=== PATIENT | female | born 1990 | race Caucasian/White ===

== ENCOUNTER → 2019-01-05 | Outpatient (CLI) | payer OTHER | END | disposition home or self-care (01) | LOC: LAB 10:20 | PROVIDERS: ATTEND Advanced Practice Midwife | DX: Z34.82 Encounter for supervision of other normal pregnancy, second trimester (principal); Z3A.00 Weeks of gestation of pregnancy not specified | CPT/HCPCS: 36415; 82105 ==

== ENCOUNTER → 2019-02-17 | Outpatient (CLI) | payer OTHER ==
[2019-02-17 10:37] LABS: BASOPHILS # (AUTO) 0.02 x10^3/uL (0-0.1); BASOPHILS % (AUTO) 0 % (0-1); EOSINOPHILS # (AUTO) 0.18 x10^3/uL (0-0.4); EOSINOPHILS % (AUTO) 2 % (1-7); LYMPHOCYTES # (AUTO) 1.45 x10^3/uL (1-3.4); LYMPHOCYTES % (AUTO) 13 % (22-44); MD NO; MEAN CORPUSCULAR HEMOGLOBIN 29.8 pg (27.0-34.8); MEAN CORPUSCULAR HGB CONC 32.6 g/dL (32.4-35.8); MEAN CORPUSCULAR VOLUME 91.5 fL (80-100); MEAN PLATELET VOLUME 8.3 fL (7.4-10.4); MONOCYTES # (AUTO) 0.57 x10^3/uL (0.2-0.8); MONOCYTES % (AUTO) 5 % (2-9); NEUTROPHILS # (AUTO) 9.43 x10^3/uL (1.8-6.8); NEUTROPHILS % (AUTO) 81 % (42-75); PLATELET COUNT 196 x10^3/uL (130-400); RED BLOOD COUNT 4.07 x10^6/uL (3.82-5.3); RED CELL DISTRIBUTION WIDTH 13.9 % (9.6-15.2)
== END | disposition home or self-care (01) ==
LOC: LAB 09:46
PROVIDERS: ATTEND Obstetrics & Gynecology Maternal & Fetal Medicine
DX: Z34.82 Encounter for supervision of other normal pregnancy, second trimester (principal)
CPT/HCPCS: 36415; 82950; 85025

== ENCOUNTER 2019-02-26 03:50 | Emergency (ER) | payer OTHER ==
[~2019-02-26] VITALS: Ht 152.4 cm; Wt 95.2 kg
[2019-02-26] MEDS ORDERED: SODIUM CHLORIDE FLUSH 10ML SYR IVF ONE ×2 (04:00→06:30)
--- NOTE | 2019-02-26 04:01 | NUR ---
L&D NURSE CALLED, RN CAME DOWN AND ASSESSED HEART TONES, ADVISED THERE WAS NO NEED FOR ANY FURTHER MONITORING AT THIS TIME
--- NOTE | 2019-02-26 04:21 | NUR ---
PT HERE FOR CHEST PAIN THAT STARTED SEVERAL HOURS AGO. PAIN IS STERNAL AND NON RADIATING. PAIN IS 6/10. VSS. PT ASSESSED BY Jada AND Leon. PT IS 25 WEEKS . LAB AT BEDSIDE. CALL LIGHT IN REACH
[2019-02-26 04:40] LABS: BASOPHILS # (AUTO) 0.02 x10^3/uL (0-0.1); BASOPHILS % (AUTO) 0 % (0-1); EOSINOPHILS # (AUTO) 0.11 x10^3/uL (0-0.4); EOSINOPHILS % (AUTO) 1 % (1-7); LYMPHOCYTES # (AUTO) 0.55 x10^3/uL (1-3.4); LYMPHOCYTES % (AUTO) 6 % (22-44); MD NO; MEAN CORPUSCULAR HEMOGLOBIN 30.1 pg (27.0-34.8); MEAN CORPUSCULAR HGB CONC 33.2 g/dL (32.4-35.8); MEAN CORPUSCULAR VOLUME 90.6 fL (80-100); MEAN PLATELET VOLUME 8.4 fL (7.4-10.4); MONOCYTES # (AUTO) 0.65 x10^3/uL (0.2-0.8); MONOCYTES % (AUTO) 7 % (2-9); NEUTROPHILS # (AUTO) 7.53 x10^3/uL (1.8-6.8); NEUTROPHILS % (AUTO) 85 % (42-75); PLATELET COUNT 175 x10^3/uL (130-400); RED BLOOD COUNT 4.13 x10^6/uL (3.82-5.3); RED CELL DISTRIBUTION WIDTH 13.8 % (9.6-15.2)
[2019-02-26 04:53] LABS: ALANINE AMINOTRANSFERASE 16 U/L (12-78); ALBUMIN 2.8 g/dL (3.4-5.0); ANION GAP 9 mmol/L (5-15); CALCIUM 8.5 mg/dL (8.5-10.1); CHLORIDE 109 mmol/L (98-107); CREATININE 0.45 mg/dL (0.55-1.02)
[2019-02-26 04:57] LABS: ALKALINE PHOSPHATASE 77 U/L (45-117); BILIRUBIN,TOTAL 0.2 mg/dL (0.2-1.0); TOTAL PROTEIN 6.7 g/dL (6.4-8.2); TROPONIN I < 0.015 ng/mL (0.000-0.045)
--- NOTE | 2019-02-26 05:32 | NUR ---
PT RESTING IN NAD. PT TO HAVE LOWER EXTREMITY US AND D DIMER. VSS. CALL LIGHT IN REACH
--- NOTE | 2019-02-26 06:35 | NUR ---
PT TO CT
[2019-02-26] MEDS ORDERED: OMNIPAQUE 350 MG/ML, 100ML BOTTLE ONE (06:50)
--- NOTE | 2019-02-26 06:50 | NUR ---
RECEIVED REPORT FROM SUAD NORMAN, PLAN OF CARE DISCUSSED
--- NOTE | 2019-02-26 07:09 | NUR ---
PT RESTING, DENIES ANY PAIN AT THIS TIME. CUSTOMS VERIFIER ON.
--- NOTE | 2019-02-26 07:35 | NUR ---
Patient/Caregiver given discharge instructions and they have confirmed that they understand the instructions. Patient ambulatory with steady gait.
[2019-02-26 07:36] VITALS: BP 110/69
== END 2019-02-26 07:38 | disposition home or self-care (01) ==
LOC: ED 05:31
DX: O26.892 Other specified pregnancy related conditions, second trimester (principal); R07.89 Other chest pain; Z3A.27 27 weeks gestation of pregnancy
CPT/HCPCS: 36415; 71045; 71275; 80053; 83880; 84484; 85025; 85379; 93005; 93971; 99284; Q9967

== ENCOUNTER 2019-05-12 08:21 | Inpatient (IN) | payer OTHER ==
[2019-05-12] VITALS (9 sets, daily range): BP systolic 108–136; BP diastolic 72–86
[~2019-05-12] VITALS: Ht 152.4 cm; Wt 102.7 kg
[2019-05-12] MEDS ORDERED: LACTATED RINGERS 1,000 ML IV SCH (09:54)
[2019-05-12] MEDS ORDERED: OXYTOCIN 30U/ 0.9% NaCL 500ML 500 ML IV ONE (09:54)
[2019-05-12] MEDS ORDERED: FENTANYL PF 100 MCG/2ML IV PRN (10:00)
[2019-05-12] MEDS ORDERED: ONDANSETRON 2MG/ML, 2ML IVPush PRN (10:00)
[2019-05-12] MEDS ORDERED: FENTANYL PF 100 MCG/2ML IVPush PRN (10:00)
[2019-05-12] MEDS ORDERED: SODIUM CHLORIDE FLUSH 10ML SYR IVF PRN (10:00)
[2019-05-12 10:30] LABS: BASOPHILS # (AUTO) 0.03 x10^3/uL (0-0.1); BASOPHILS % (AUTO) 0 % (0-1); EOSINOPHILS # (AUTO) 0.11 x10^3/uL (0-0.4); EOSINOPHILS % (AUTO) 1 % (1-7); LYMPHOCYTES # (AUTO) 1.36 x10^3/uL (1-3.4); LYMPHOCYTES % (AUTO) 14 % (22-44); MD NO; MEAN CORPUSCULAR HEMOGLOBIN 29.6 pg (27.0-34.8); MEAN CORPUSCULAR HGB CONC 32.9 g/dL (32.4-35.8); MEAN CORPUSCULAR VOLUME 90.1 fL (80-100); MEAN PLATELET VOLUME 8.8 fL (7.4-10.4); MONOCYTES % (AUTO) 6 % (2-9); NEUTROPHILS # (AUTO) 7.64 x10^3/uL (1.8-6.8); NEUTROPHILS % (AUTO) 79 % (42-75); PLATELET COUNT 189 x10^3/uL (130-400); RED CELL DISTRIBUTION WIDTH 14.9 % (9.6-15.2)
[2019-05-12] MEDS: OXYTOCIN 30U/ 0.9% NaCL 500ML 500 ML IV SCH ×2 (13:00→19:01)
[2019-05-12] MEDS ORDERED: NEWBORN KIT ONE (13:08)
[2019-05-12] MEDS ORDERED: LIDOCAINE 1%, 20ML ONE (13:08)
[2019-05-12] MEDS ORDERED: MISOPROSTOL 200 MCG TABLET ONE (13:09)
[2019-05-12] MEDS ORDERED: OXYTOCIN 30U/ 0.9% NaCL 500ML 500 ML ONE (13:09)
[2019-05-12] MEDS ORDERED: HYDROcodone/APAP 5/325 TABLET ONE (14:40)
[2019-05-12] MEDS ORDERED: IBUPROFEN 600 MG TABLET ONE (14:40)
[2019-05-12] MEDS ORDERED: ONDANSETRON 2MG/ML, 2ML IV PRN (15:00)
[2019-05-12] MEDS ORDERED: ACETAMINOPHEN 325 MG TABLET PO PRN (15:00)
[2019-05-12] MEDS ORDERED: MISOPROSTOL 200 MCG TABLET PR PRN (15:00)
[2019-05-12] MEDS ORDERED: CARBOPROST TROMETHAMINE 250 MCG/ML, 1ML IM PRN (15:00)
[2019-05-12] MEDS ORDERED: OXYcodone IR 5MG TABLET PO PRN (15:00)
[2019-05-12] MEDS: IBUPROFEN 600 MG TABLET PO PRN ×2 (15:00→21:44)
[2019-05-12] MEDS: HYDROcodone/APAP 5/325 TABLET PO PRN ×4 (15:00→23:12)
[2019-05-12] MEDS ORDERED: BISACODYL 10 MG SUPP PR PRN (15:00)
[2019-05-12] MEDS ORDERED: METHYLERGONOVINE 0.2 MG/ML IM PRN (15:00)
[2019-05-12] MEDS: DOCUSATE 100 MG CAPSULE PO PRN (21:44)
[2019-05-12 23:43] LABS: BASOPHILS # (AUTO) 0.09 x10^3/uL (0-0.1); BASOPHILS % (AUTO) 1 % (0-1); EOSINOPHILS # (AUTO) 0.09 x10^3/uL (0-0.4); EOSINOPHILS % (AUTO) 1 % (1-7); LYMPHOCYTES # (AUTO) 1.51 x10^3/uL (1-3.4); LYMPHOCYTES % (AUTO) 12 % (22-44); MD NO; MEAN CORPUSCULAR HEMOGLOBIN 30.5 pg (27.0-34.8); MEAN CORPUSCULAR HGB CONC 33.2 g/dL (32.4-35.8); MEAN CORPUSCULAR VOLUME 91.9 fL (80-100); MEAN PLATELET VOLUME 8.9 fL (7.4-10.4); MONOCYTES # (AUTO) 0.66 x10^3/uL (0.2-0.8); MONOCYTES % (AUTO) 5 % (2-9); NEUTROPHILS # (AUTO) 10.81 x10^3/uL (1.8-6.8); NEUTROPHILS % (AUTO) 82 % (42-75); PLATELET COUNT 175 x10^3/uL (130-400); RED BLOOD COUNT 3.75 x10^6/uL (3.82-5.3); RED CELL DISTRIBUTION WIDTH 14.8 % (9.6-15.2)
[2019-05-13 03:30] VITALS: BP 111/72
[2019-05-13] MEDS: IBUPROFEN 600 MG TABLET PO PRN ×3 (03:30→18:32)
[2019-05-13] MEDS: HYDROcodone/APAP 5/325 TABLET PO PRN ×2 (06:26→23:24)
[2019-05-13] MEDS: DOCUSATE 100 MG CAPSULE PO PRN ×2 (08:21→23:24)
[2019-05-13] MEDS: PRENATAL VIT/IRON/FA 1 EACH TABLET PO SCH (08:21)
[2019-05-13 09:00] VITALS: BP 112/81
[2019-05-13] MEDS: OXYTOCIN 30U/ 0.9% NaCL 500ML 500 ML IV SCH (11:00)
[2019-05-13 13:00] VITALS: BP 117/78
[2019-05-13 19:30] VITALS: BP 116/76
[2019-05-14] MEDS: IBUPROFEN 600 MG TABLET PO PRN ×2 (02:26→09:05)
[2019-05-14 07:20] VITALS: BP 123/78
[2019-05-14] MEDS: DOCUSATE 100 MG CAPSULE PO PRN (09:05)
[2019-05-14] MEDS: PRENATAL VIT/IRON/FA 1 EACH TABLET PO SCH (09:05)
[2019-05-14] MEDS ORDERED: HYDR-3240 PO (09:24)
[2019-05-14] MEDS ORDERED: DOCU-131 PO (09:25)
[2019-05-14] MEDS ORDERED: IBUP-1222 PO (09:25)
== END 2019-05-14 17:10 | disposition home or self-care (01) | DRG 807 ==
LOC: LDOP 08:21 → LDIP 09:57 → 2NW 16:53
PROVIDERS: ADMIT Obstetrics & Gynecology Maternal & Fetal Medicine; ATTEND Obstetrics & Gynecology Maternal & Fetal Medicine
PROC: 10E0XZZ Delivery of Products of Conception, External Approach (ICD-10-PCS; principal; 2019-05-12)
PROC: 0HQ9XZZ Repair Perineum Skin, External Approach (ICD-10-PCS; 2019-05-12)
DX: O70.0 First degree perineal laceration during delivery (principal); Z37.0 Single live birth; Z3A.38 38 weeks gestation of pregnancy
CPT/HCPCS: 36415; 85025; 86850; 86900; G0378; J2210; J2590; J7120